=== PATIENT | female | born 1945 | race Caucasian/White ===

== ENCOUNTER 2017-09-04 18:48 | Emergency (ER) | payer MEDICARE, OTHER ==
[2017-09-04 20:27] LABS: BASOPHILS # (AUTO) 0.1 10^3/uL (0.0-0.1); BASOPHILS % (AUTO) 0.8 %; EOSINOPHILS # (AUTO) 0.2 10^3/uL (0.0-0.7); EOSINOPHILS % (AUTO) 2.5 %; HCT - HEMATOCRIT 44.3 % (37.0-47.0); HGB - HEMOGLOBIN 14.9 g/dL (12.0-16.0); LYMPHOCYTES # (AUTO) 1.4 10^3/uL (1.5-3.5); LYMPHOCYTES % (AUTO) 18.4 %; MEAN CORPUSCULAR HEMOGLOBIN 31.6 pg (27.0-31.0); MEAN CORPUSCULAR HGB CONC 33.7 g/dL (32.0-36.0); MEAN CORPUSCULAR VOLUME 93.9 fL (81.0-99.0); MEAN PLATELET VOLUME 7.7 fL (7.9-10.8); MONOCYTES # (AUTO) 0.7 10^3/uL (0.0-1.0); MONOCYTES % (AUTO) 9.3 %; NEUTROPHILS # (AUTO) 5.1 10^3/uL (1.5-6.6); RED BLOOD COUNT 4.72 10^6/uL (4.20-5.40); RED CELL DISTRIBUTION WIDTH 13.4 % (12.0-15.0); UNCORRECTED WHITE BLOOD COUNT 7.4 x10^3/uL; WHITE BLOOD COUNT 7.4 x10^3/uL (4.8-10.8)
[2017-09-04 20:40] LABS: CREATININE 0.8 mg/dL (0.4-1.0); POTASSIUM 3.8 mmol/L (3.5-5.0)
--- NOTE | 2017-09-04 21:37 | Ultrasound Preliminary Report ---
Exam: US Duplex Ext Veins Right IMPRESSION: 1. No evidence of deep venous thrombosis. 2. Tiny right knee effusion. [facility] SITE ID: [id number]
--- NOTE | 2017-09-04 21:42 | Ultrasound Report ---
EXAM: RIGHT LOWER EXTREMITY VENOUS ULTRASOUND EXAM DATE: 09/04/2017 09:27 PM. CLINICAL HISTORY: Right leg pain and swelling. COMPARISON: None. TECHNIQUE: Real-time sonographic vascular imaging was performed by the boardinghouse keeper through the lower extremity utilizing both color-flow and Doppler spectral analysis. Multiple sales representative facility services static jj ges were saved for review. FINDINGS: Common Femoral Vein (CFV): Normal. CFV-GSV Junction: Normal. Profunda Femoral Vein (PFV): Normal. Femoral Vein (FV) Prox: Normal. Femoral Vein (FV) Mid: Normal. Femoral Vein (FV) Dist: Normal. Popliteal Vein: Normal. Posterior Tibial Veins: Normal. Peroneal Veins: Normal. Contralateral Side CFV: Not assessed. Other: Tiny right knee effusion. IMPRESSION: 1. No evidence of deep venous thrombosis. 2. Tiny right knee effusion. [facility] Referring Provider Line: [phone] SITE ID: [id number]
--- NOTE | 2017-09-04 21:54 | ED Physician Documentation ---
PD HPI LOWER EXT INJURY - Stated complaint Stated Complaint: LEG SWELLING - Chief complaint Chief Complaint: Ext Problem - History obtained from History obtained from: Patient, Family - History of Present Illness PD HPI LOW EXT INJURY LOCATION: Right, Lower leg Where injury occurred: Home Timing - onset: How many days ago (2) Timing - details: Gradual onset, Still present Associated symptoms: Swelling. No: Weakness, Numbness, Discolored Contributing factors: No: Anticoagulated, Prior ortho surgery Similar symptoms before: Has not had sx before Recently seen: Not recently seen - Additional information Additional information: Patient is a 71 year old feamle who is presenting to the emergency department for right lower leg pain and swelling. patient states that it has been going on for the last few days. patient recently drove in from [place]. Patient called her home doctor and the nursing line stated that patient should come to the emergency department. patient denies any trauma. Review of Systems Constitutional: denies: Fever, Chills Eyes: denies: Decreased vision, Photophobia Ears: denies: Ear pain, Drainage/discharge Nose: denies: Congestion Throat: denies: Dental pain / toothache, Sore throat Cardiac: reports: Calf pain. denies: Chest pain / pressure, Palpitations Respiratory: denies: Dyspnea, Cough, Hemoptysis GI: denies: Abdominal Pain, Nausea, Vomiting : reports: Reviewed and negative Skin: denies: Rash, Lesions, Abrasion (s), Laceration (s) Musculoskeletal: reports: Extremity pain, Extremity swelling Neurologic: denies: Generalized weakness, Focal weakness Immunocompromised: reports: Reviewed and negative PD PAST MEDICAL HISTORY - Past Medical History Past Medical History: Yes Cardiovascular: High cholesterol Endocrine/Autoimmune: Type 2 diabetes, HyPOthyroidism - Past Surgical History Past Surgical History: No - Present Medications Home Medications: Ambulatory Orders Medication Instructions Recorded Confirmed Atorvastatin [Lipitor] 10 mg DAILY 09/04/17 09/04/17 Levothyroxine [Synthroid] 75 mcg PO QDAC 09/04/17 09/04/17 metFORMIN [Glucophage] 500 mg DAILY 09/04/17 09/04/17 - Allergies Allergies/Adverse Reactions: Allergies Allergy/AdvReac Type Severity Reaction Status Date / Time an antibiotic AdvReac Unknown Uncoded 09/04/17 18:58 - Social History Does the pt smoke?: No Smoking Status: Never smoker Does the pt drink ETOH?: No Does the pt have substance abuse?: No PD ED PE NORMAL - Vitals Vital signs reviewed: Yes - General General: Alert and oriented X 3, No acute distress - HEENT HEENT: Atraumatic, PERRL, Pharynx benign - Neck Neck: Supple, no meningeal sign, No JVD - Cardiac Cardiac: RRR, No murmur - Respiratory Respiratory: No respiratory distress - Abdomen Abdomen: Soft, Non tender, Non distended - Derm Derm: Normal color, Warm and dry, No rash - Neuro Neuro: Alert and oriented X 3, No motor deficit, No sensory deficit, Normal speech PD ED PE EXPANDED - Extremities Extremities: Right leg (mild tenderness and swelling of right lower leg/calf) Results - Vitals Vitals: Vital Signs - 24 hr 09/04/17 09/04/17 09/04/17 18:55 20:49 21:55 Temperature 36.4 C L Heart Rate 85 80 77 Respiratory 16 18 18 Rate Blood Pressure 151/81 H 159/72 H 144/72 H O2 Saturation 100 99 98 Oxygen O2 Source Room air - Labs Labs: Laboratory Tests 09/04/17 09/04/17 20:15 20:15 WBC 7.4 RBC 4.72 Hgb 14.9 Hct 44.3 MCV 93.9 MCH 31.6 H MCHC 33.7 RDW 13.4 Plt Count 251 MPV 7.7 L Neut # 5.1 Lymph # 1.4 L [place] # 0.7 Eos # 0.2 Baso # 0.1 Absolute Nucleated RBC 0.00 Nucleated RBC % 0.0 Sodium 139 Potassium 3.8 Chloride 104 Carbon Dioxide 25 Anion Gap 10.0 BUN 25 H Creatinine 0.8 Estimated GFR (MDRD) 71 L Glucose 150 H Calcium 10.0 Total Creatine Kinase 59 - Rads (name of study) vasc lle Radiology: Final report received (no acute dvt) PD MEDICAL DECISION MAKING - ED course Complexity details: reviewed results, re-evaluated patient, considered differential, d/w patient, d/w family ED course: Patient was seen and examined at bedside. labs were drawn and imaging was ordered. when patient returned form imaging her diagnostics were reviewed. patient had no dvt or signs of rhabdomyolysis. Patient required no further work up and was stable for discharge with outpatient follow. Departure - Departure Disposition: 01 Home, Self Care Clinical Impression: Pain of lower extremity Condition: Good Instructions: ED Strain Muscle Ext Follow-Up: primary,care provider [Other] - As Needed Comments: Your diagnostics today were within normal limits, there is no sign of rhabdomyolysis or blood clot. You likely strained your muscle. You should do low intensity work outs for the next few days. You can take tylenol as needed for pain. you should avoid nsaids with your diabetes. You should also try elevating your leg and using ice for pain. You may return to the emergency department at any time for new, worsening or uncontrollable symptoms. Discharge Date/Time: 09/04/17 22:03
[2017-09-04 21:55] VITALS: BP 144/72
== END 2017-09-04 22:03 | disposition home or self-care (01) ==
LOC: ED 18:48
DX: M79.661 Pain in right lower leg (principal); E11.9 Type 2 diabetes mellitus without complications; E78.00 Pure hypercholesterolemia, unspecified; E03.9 Hypothyroidism, unspecified; Z79.84 Long term (current) use of oral hypoglycemic drugs
CPT/HCPCS: 36415; 80048; 82550; 85025; 99283